=== PATIENT | male | born 1965 ===

== ENCOUNTER 2023-09-26 02:12 | Emergency (ER) | payer MEDICAID, SELFPAY ==
[2023-09-26] VITALS (48 sets, daily range): BP systolic 96–102; BP diastolic 63–71; PULSE 101–105; RESP 13–29; TEMP 36.6; O2SAT 92–98
--- NOTE | 2023-09-26 02:15 | DI.CT_ITS ---
Exam(s) CT HEAD WO EXAM: CT HEAD WO CLINICAL HISTORY: struck forehead on mental bunk. TECHNIQUE: Imaging Protocol: Axial computed tomography images with coronal and sagittal reformatted images were created and reviewed COMPARISON: No exams were available for comparison FINDINGS: There are no skull fractures. There is no fluid in the visualized paranasal sinuses. There is no evidence of intracranial hemorrhage, mass effect, or shift of midline structures. There are no extra-axial fluid collections. The ventricles are not enlarged or shifted and there is no blo od within the ventricular system nor within the basal cisterns. Incidentally noted is symmetrical volume loss of the brain, more so than expected at this age group. IMPRESSION: No acute intracranial findings on this noninfused CT scan of the brain. Mild symmetrical atrophy noted. RADIATION DOSE DELIVERED: Total DLP DATA REPOSITORY: All CT scans at this facility are submitted to the National Radiology Data Registry (NRDR) Dose Index Registry (DIR) with the [employer] ([employer]). RADIATION OPTIMIZATION: All CT scans at this facility use at least one of these dose optimization te chniques: automated exposure control; mA and/or kV adjustment per patient size (includes targeted exa ms where dose is matched to clinical indication); or iterative reconstruction.
--- NOTE | 2023-09-26 03:10 | W.ED.GENAD ---
Discharge Plan Disposition Patient Disposition: [facility] Condition: Good Discharge Details Clinical Impression: Concussion Primary Care Provider: Unknown,Unknown ED Provider: Danika Whaley Home Meds and New Rx's Prescriptions: Continued hydrochlorothiazide 12.5 mg capsule 12.5 mg PO DAILY lisinopril 20 mg tablet 20 mg PO DAILY vit-ferrous sulfat-FA 27 mg iron- 0.8 mg tablet 1 tab PO DAILY Discharge Instructions Instructions: Concussion, Adult ED Additional Instructions: Return to the emergency department for new or worsening symptoms including numbness, weakness, vertigo, vision changes, vomiting, or if you have any other concerns. HPI General Mode of arrival: ambulatory. Date/Time Provider Initiated Documentation: 09/26/23 02:22. Limitations to Documentation: no limitations. Information obtained by: patient and police. HPI Narrative: 58yo M with hx HTN, ETOH abuse, presenting from correctional facility for head injury. Today has been striking his head against his metal bed frame. CO report he seems slightly 'off', more slow to respond than typical. Patient reports frontal headache, denies pain or injury elsewhere. No neck pain, numbness, tingling, weakness, vertigo, nasuea, vomiting, or vision changes. He is otherwise in his usual state of health. Related Data Home Medications ?Medication ?Instructions ?Recorded ?Confirmed hydrochlorothiazide 12.5 mg capsule 12.5 mg PO DAILY 09/26/23 09/26/23 lisinopril 20 mg tablet 20 mg PO DAILY 09/26/23 09/26/23 vitamin-ferrous sulfate 1 tab PO DAILY 09/26/23 09/26/23 27 mg iron-folic acid 0.8 mg tablet Allergies Allergy/AdvReac Type Severity Reaction Status Date / Time No Known Drug Allergies Allergy Severe Unknown Verified 09/26/23 02:11 General Stated Complaint: HeadInjury TRUONG: 2 Review of Systems Narrative: see HPI Exam Narrative Exam Narrative: GENERAL: Alert, no acute distress. SKIN: Warm and well perfused. HEAD: Echymosis and swelling to mid forehead. Otherwise nrmocephalic without edema, discoloration or other evidence of trauma. EYES: PERRL. No scleral icterus or conjunctival injection. Extraocular muscles intact without nystagmus or diplopia. No proptosis or enophthalmos. EARS: No hemotympanum. NOSE: No discharge, tenderness, laxity. No nasal septal hematoma. MOUTH: No malocclusion or trismus. Moist mucus membranes without blood. Posterior pharynx without erythema or exudate. NECK: Trachea midline. No discolorations or edema. CV: Regular rate and rhythm, Normal s1 and s2. No murmurs, rubs, or gallops. PV: Radial pulses 2+ bilaterally and symmetric. Dorsalis pedis pulses 2+ bilaterally and symmetric. 2+ capillary refill. No extremity edema. CHEST: No abrasions or ecchymosis. Chest symmetric with respirations. No chest wall tenderness. Lungs are clear to auscultation bilaterally. ABDOMEN: No ecchymosis or abrasions. Soft, nondistended, nontender. BACK: No abrasions, skin openings, or ecchymosis. Spine without bony tenderness, no step offs. PELVIC: Pelvis stable, nontender to lateral compression MSK: No gross deformities. Neuro: ? GCS 15.? PERRL.? EOMI.? Fluent speech, no dysarthria. Motor- 5/5 strength symmetric bilateral upper and lower extremities Sensation- ?Intact to light touch and symmetric multiple dermatomes including upper and lower extremities Coordination- No dysmetria on finger to nose Gait/station: ?Normal stance.? No truncal ataxia. Steady gait CRANIAL NERVES: II: Pupils equal and reactive, III, IV, : EOM intact, no gaze preference or deviation, no nystagmus. V: normal sensation in V1, V2, and V3 segments bilaterally VII: no asymmetry, no nasolabial fold flattening VIII: normal hearing to speech IX, X: normal palatal elevation, no uvular deviation XI: 5/5 head turn and 5/5 shoulder shrug bilaterally XII: midline tongue protrusion Course Vital Signs Vital signs: Vital Signs Pulse 105 H 09/26/23 02:12 Respiratory Rate 26 H 09/26/23 02:12 Blood Pressure 96/71 L 09/26/23 02:12 Pulse Oximetry 95 09/26/23 02:12 Temperature 36.6 C 09/26/23 02:15 Temperature Source Temporal Artery Scan 09/26/23 02:15 Pulse 102 H 09/26/23 02:31 Respiratory Rate 16 09/26/23 02:39 Respiratory Effort Normal, Non-Labored 07/21/24 02:22 Respiratory Depth Normal 09/26/23 02:22 Respiratory Pattern Normal 09/26/23 02:22 Blood Pressure 102/70 09/26/23 02:31 Blood Pressure Position Sitting 09/26/23 02:15 Pulse Oximetry 95 09/26/23 03:02 Oxygen Delivery Method Room Air 09/26/23 02:15 Oxygen Flow Rate 0 09/26/23 02:15 Pain Level 0 09/26/23 02:15 Medical Decision Making 58yo M with hx HTN, ETOH abuse, presenting from correctional facility for head injury. Today has been striking his head against his metal bed frame, most recently several hours ago. No LOC, not on AC. Patient with mild frontal headache, no neurologic symptoms. Slightly tachycardiac at low 100's, vital signs otherwise reassuring. Slightly slow to respond to questions, otherwise entirely normal neurologic exam. C-spine clinically clear. Remainder of physical exam with no indication of significant trauma and patient denies pain or injury elsewhere. No indications for labs or body imaging; suspect mild concussion. Out of abundance of caution will get head CT. CT independently reviewed, no intracranial bleed or mass on my view, agree with radiology read below. Repeat vital signs again with mild tachycardia, otherwise reassuring. I am not concerned for an acute hemmoraghe, sepsis, or cardiac issue based on his history and exam; most likely 2/t situational mild agitation. Discharged back to correctional facility; discharge instruction and return precautions reviewed with patient and staff at bedside. Imaging Data Radiologic Study: Imaging: CT Scan Radiologist's impression: IMPRESSION: No acute brain findings Quality:SDOH Health Related Social Needs: No Data to Display [facility] All Active Problems (Updated 09/26/23 @ 03:10 by Danika Whaley MD) Concussion (Acute) Social History Smoking/Tobacco Use Status: Never Smoking risk assessment performed?: Yes Alcohol Intake: former Drug use: Never Substance use type: does not use Housing: apartment Do you feel safe at home: Yes Do you feel safe in your relationship?: Yes PAWSS Have you Been Recently Intoxicated or Drunk Within the Last 30 days?: Yes Have you Ever Experienced Previous Episodes of Alcohol Withdrawal?: No Have you ever Experienced Withdrawal Seizures?: No Have you ever Experienced Delirium Tremens(DT)s?: No Have you ever undergone Alcohol Rehabilitation Treatment (i.e, inpt ot outpatient treatment programs)?: No Have you ever Experienced Blackouts?: No Have you ever Combined Alcohol with other Downers within the last 90 days?: No Have you ever Combined Alcohol with any other Substance of Abuse during the last 90 days?: No Positive Blood Alcohol level on Presentation? [PCS.BAL]: No Evidence of Increased Autonomic Activity (i.e. HR>120, tremor, sweating, agitation, nausea)?: Yes Result: 2
--- NOTE | 2023-09-26 03:12 | DI.VRAD_ITS ---
PROCEDURE INFORMATION: Exam: CT Head Without Contrast Exam date and time: 09/26/2023 2:45 AM Age: 58 years old Clinical indication: Injury or trauma; Other: Struck head on metal bunk; Blunt trauma (contusions or hematomas) TECHNIQUE: Imaging protocol: Computed tomography of the head without contrast. COMPARISON: No relevant prior studies available. FINDINGS: Brain: No brain edema. No intracranial hemorrhage. Mild generalized volume loss of the brain. Cerebral ventricles: No ventriculomegaly. Paranasal sinuses: Visualized sinuses are unremarkable. No fluid levels. Mastoid air cells: Unremarkable. Bones: Unremarkable. No acute fracture. Soft tissues: Unremarkable. IMPRESSION: No acute brain findings. Dictated and Authenticated by: Lio Peterson MD. Ordering:NAEL Garnica MD
== END 2023-09-26 03:19 ==
PROVIDERS: Emergency Provider Student in an Organized Health Care Education/Training Program
DX: S06.0XAA Concussion with loss of consciousness status unknown, initial encounter (principal); R45.88 Nonsuicidal self-harm; W22.8XXA Striking against or struck by other objects, initial encounter
CPT/HCPCS: 99284; 70450; 99283